=== PATIENT | male | born 1950 | race Caucasian/White ===

== ENCOUNTER → 2016-10-22 | Outpatient (CLI) | payer OTHER | LOC: FIMAGING 14:28 | PROVIDERS: ATTEND Orthopaedic Surgery | DX: Z01.818 Encounter for other preprocedural examination (principal); M16.11 Unilateral primary osteoarthritis, right hip ==

== ENCOUNTER 2016-11-15 11:11 | Inpatient (IN) | payer OTHER ==
--- NOTE | 2016-11-15 06:44 | PDIAF ---
- Diagnosis Diagnosis: right hip djd Code Status: Full Code - Medication Management Discharge Medications: Medications to Continue on Transfer Aspirin [Aspirin 81mg (*)] 81 mg PO DAILY 10/25/16 [Last Taken Unknown] Atorvastatin Calcium [Lipitor 20 mg (*)] 20 mg PO DAILY 10/25/16 [Last Taken Unknown] Herbals/Supplements -Info Only 1 ea PO DAILY 10/25/16 [Last Taken Unknown] Ibuprofen [Motrin (*)] 400 mg PO DAILY 10/25/16 [Last Taken Unknown] Multivitamins [Multivitamin (*)] 1 each PO DAILY 10/25/16 [Last Taken Unknown] Discharge Medications: Refer to the Discharge Home Medication list for PRN reason. - Orders Services needed: Physical Therapy Activity/Weight Bearing Restrictions: daily dressing changes. no soaking. may shower without bandage. wbat. anterior hip precautions. f/u at two weeks. seek attn for increasing pain, leg pain, drainage, s/s infection - Follow Up Care Current Providers and Referrals: Von North MD [Primary Care Provider] -
--- NOTE | 2016-11-15 06:44 | PDHPUP ---
History & Physical Update H&P update statement: This history and physical update is based on an assessment of the patient which was completed after admission or registration (within 24 hours), but prior to the surgery/procedure.
[~2016-11-15 11:11] MED LIST: ROPIVACAINE 0.2% 80 MG, EPINEPHrine 0.2 MG, KETOROLAC TROMETHAMINE 30 MG, morphINE 10 M... IU ONE; TRANEXAMIC ACID 1,620 MG in NS 100 ML IV ONE
[2016-11-15] MEDS ORDERED: ACETAMINOPHEN 325 MG TAB PO ONE (11:45)
[2016-11-15] MEDS ORDERED: FAMOTIDINE 20 MG TAB PO ONE (11:45)
[2016-11-15] MEDS ORDERED: ceFAZolin 2 GM/DEXTROSE 100 ML IV ONE (11:45)
[2016-11-15] MEDS ORDERED: LR 1,000 ML IV ONE (12:06)
[2016-11-15] MEDS ORDERED: THROMBIN (BOVINE) 5,000 UNIT VIAL TP ONE (12:09)
[2016-11-15] MEDS ORDERED: CALCIUM CHLORIDE 1 GM/10 ML INJ ONE (12:09)
[2016-11-15] MEDS ORDERED: ceFAZolin 1 GM/5 ML SYR ONE (12:10)
--- NOTE | 2016-11-15 13:57 | PDANEPAE ---
ANE Past Medical History - Cardiovascular History Hx Hypertension: No Hx Arrhythmias: No Hx Chest Pain: No Hx Coronary Artery / Peripheral Vascular Disease: No Hx CHF / Valvular Disease: No Hx Palpitations: No Cardiovascular History Comment: high chol - Pulmonary History Hx COPD: No Hx Asthma/Reactive Airway Disease: No Hx Recent Upper Respiratory Infection: No Hx Oxygen in Use at Home: No Hx Sleep Apnea: No Sleep Apnea Screening Result - Last Documented: Negative - Neurologic History Hx Cerebrovascular Accident: No Hx Seizures: No Hx Dementia: No - Endocrine History Hx Diabetes: No - Renal History Hx Renal Disorders: No - Liver History Hx Hepatic Disorders: No - Neurological & Psychiatric Hx Hx Neurological and Psychiatric Disorders: No - Cancer History Hx Cancer: Yes Cancer History Comment: skin ca - Congenital Disorder History Hx Congenital Disorders: No - GI History Hx Gastrointestinal Disorders: No - Other Health History Other Health History: wears contacts - Chronic Pain History Chronic Pain: Yes (right hip) - Surgical History Prior Surgeries: left eyelid surgery for cancer. oral surgery ANE Review of Systems Review of Systems: - Exercise capacity METS (RN): 4 METS ANE Patient History - Allergies Allergies/Adverse Reactions: scallops Allergy (Verified 10/27/16 11:10) - Home Medications Home Medications: Aspirin [Aspirin 81mg (*)] 81 mg PO DAILY 10/25/16 [Last Taken 1 Week Ago ~11/08] Atorvastatin Calcium [Lipitor 20 mg (*)] 20 mg PO DAILY 10/25/16 [Last Taken 09/23] Herbals/Supplements -Info Only 1 ea PO DAILY 10/25/16 [Last Taken 1 Week Ago ~] Ibuprofen [Motrin (*)] 400 mg PO DAILY 10/25/16 [Last Taken 1 Week Ago ~11/08/16 ] Multivitamins [Multivitamin (*)] 1 each PO DAILY 10/25/16 [Last Taken 1 Week Ago ~11/08/16] - NPO status NPO Since - Liquids (Date): 11/14/16 NPO Since - Liquids (Time): 20:00 NPO Since - Solids (Date): 11/14/16 NPO Since - Solids (Time): 20:00 - Smoking Hx Smoking Status: Former smoker - Family Anes Hx Family Hx Anesthesia Complications: none ANE Labs/Vital Signs - Vital Signs Blood Pressure: 153/96 Heart Rate: 54 Respiratory Rate: 18 O2 Sat (%): 95 Height: 162.56 cm Weight: 80.739 kg ANE Physical Exam - Airway Neck exam: FROM Mallampati Score: Class 2 Mouth exam: normal dental/mouth exam - Pulmonary Pulmonary: no respiratory distress - Cardiovascular Cardiovascular: regular rate and rhythym - ASA Status ASA Status: II ANE Anesthesia Plan Anesthesia Plan: spinal
[2016-11-15] MEDS ORDERED: MIDAZOLAM 2 MG/2 ML VIAL ONE (13:58)
[2016-11-15] MEDS ORDERED: fentaNYL 100 MCG/2 ML INJ ONE ×4 (13:58→17:08)
[2016-11-15] MEDS ORDERED: PROPOFOL/EMULSION 500 MG/50 ML BOTTLE IV ONE (13:58)
[2016-11-15] MEDS ORDERED: LIDOCAINE 2% 100 MG/5 ML SYR ONE (13:59)
[2016-11-15] MEDS ORDERED: DEXAMETHASONE 4 MG/ML VIAL ONE ×2 (13:59)
[2016-11-15] MEDS ORDERED: METOCLOPRAMIDE 10 MG/2 ML VIAL ONE (13:59)
[2016-11-15] MEDS ORDERED: BUPIVACAINE/DEXTROSE 7.5MG/ML 2 ML SPINAL AMP SP ONE (14:00)
[2016-11-15] MEDS ORDERED: ROCURONIUM 50 MG/5 ML VIAL ONE (14:36)
[2016-11-15] MEDS ORDERED: ONDANSETRON DISINTEGRATING 4 MG TAB PO PRN (14:37)
[2016-11-15] MEDS ORDERED: traMADol 50 MG TAB PO PRN (14:37)
[2016-11-15] MEDS ORDERED: ONDANSETRON 4 MG/2 ML VIAL IVP PRN ×2 (14:37→16:59)
[2016-11-15] MEDS ORDERED: PROMETHAZINE HCL 25 MG SUPPR PR PRN (14:37)
[2016-11-15] MEDS ORDERED: LACTULOSE 20 GM/30 ML UDCUP PO PRN (14:37)
[2016-11-15] MEDS ORDERED: BISACODYL 10 MG SUPP PR PRN (14:37)
[2016-11-15] MEDS ORDERED: DIPHENOXYLATE/ATROPINE LOMOTIL 1 TAB PO PRN (14:37)
[2016-11-15] MEDS ORDERED: MAGNESIUM HYDROXIDE 30 ML UDCUP PO PRN (14:37)
[2016-11-15] MEDS ORDERED: PROMETHAZINE HCL 25 MG/ML INJ IVP PRN (14:37)
[2016-11-15] MEDS ORDERED: TEMAZEPAM 15 MG CAP PO PRN (14:37)
[2016-11-15] MEDS ORDERED: DIAZEPAM 5 MG TAB PO PRN (14:37)
[2016-11-15] MEDS ORDERED: POLYETHYLENE GLYCOL 3350 17 GM PKT PO PRN (14:37)
[2016-11-15] MEDS ORDERED: diphenhydrAMINE 25 MG CAP PO PRN (14:37)
[2016-11-15] MEDS ORDERED: METOCLOPRAMIDE 10 MG/2 ML VIAL IVP PRN (14:37)
[2016-11-15] MEDS ORDERED: LR 1,000 ML IV SCH (15:00)
[2016-11-15] MEDS ORDERED: HYDROmorphONE/DILAUDID 1 MG/ML INJ IVP PRN (16:59)
[2016-11-15] MEDS ORDERED: MEPERIDINE 25 MG/ML SYR IVP PRN (16:59)
[2016-11-15] MEDS ORDERED: fentaNYL 100 MCG/2 ML INJ IVP PRN (16:59)
[2016-11-15] MEDS ORDERED: ALBUTEROL 3 ML DEYVIAL IH PRN (16:59)
[2016-11-15] MEDS ORDERED: NALOXONE HCL 0.4 MG/ML INJ IVP PRN (16:59)
--- NOTE | 2016-11-15 16:59 | POSTANESTH ---
Post Anesthetic Evaluation Cardiovascular Status: Similar to Pre-Op Cond Respiratory Status: Similar to Pre-op Cond. Level of Consciousness/Mental Status: Alert and Oriented Pain Control: Adequate, Prn Tx Ordered Nausea/Vomiting Control: Adequate, Prn Tx Ordered Complications Possibly Related to Anesthesia: None Noted
[2016-11-15] MEDS ORDERED: MEPERIDINE 25 MG/ML SYR ONE (17:08)
[2016-11-15] MEDS ORDERED: traMADol 50 MG TAB ONE (18:09)
[2016-11-15] MEDS ORDERED: oxyCODONE IR 5 MG TAB ONE (19:52)
[2016-11-15] MEDS: oxyCODONE IR 5 MG TAB PO PRN (19:56)
[2016-11-15] MEDS: ACETAMINOPHEN 325 MG TAB PO SCH (20:34)
[2016-11-15] MEDS: TRANEXAMIC ACID 650 MG TAB PO SCH ×2 (20:35→22:07)
[2016-11-15] MEDS: SENNOSIDES/DOCUSATE SODIUM TAB PO SCH (21:48)
[2016-11-15] MEDS: FAMOTIDINE 20 MG TAB PO SCH (21:49)
[2016-11-15] MEDS: ceFAZolin 2 GM/DEXTROSE 100 ML IV SCH (22:05)
[2016-11-15] MEDS: ASPIRIN 325 MG TAB PO SCH (22:07)
[2016-11-16] MEDS: ACETAMINOPHEN 325 MG TAB PO SCH ×3 (00:18→12:59)
[2016-11-16] MEDS: oxyCODONE IR 5 MG TAB PO PRN ×2 (02:29→12:59)
[2016-11-16 05:35] LABS: HEMATOCRIT 37.2 % (40.0-51.0); HEMOGLOBIN 13.3 g/dL (13.7-17.5)
[2016-11-16] MEDS: ceFAZolin 2 GM/DEXTROSE 100 ML IV SCH (06:07)
[2016-11-16] MEDS: TRANEXAMIC ACID 650 MG TAB PO SCH (06:07)
--- NOTE | 2016-11-16 07:33 | PDIAF ---
- Diagnosis Diagnosis: right hip djd Code Status: Full Code - Medication Management Discharge Medications: Medications to Continue on Transfer Aspirin [Aspirin 81mg (*)] 81 mg PO DAILY 10/25/16 [Last Taken 1 Week Ago ~11/08] Atorvastatin Calcium [Lipitor 20 mg (*)] 20 mg PO DAILY 10/25/16 [Last Taken 09/23] Herbals/Supplements -Info Only 1 ea PO DAILY 10/25/16 [Last Taken 1 Week Ago ~] Ibuprofen [Motrin (*)] 400 mg PO DAILY 10/25/16 [Last Taken 1 Week Ago ~11/08/16 ] Multivitamins [Multivitamin (*)] 1 each PO DAILY 10/25/16 [Last Taken 1 Week Ago ~11/08/16] Aspirin [Aspirin 325 mg (*)] 325 mg PO DAILY tab 11/16/16 [Last Taken Unknown] oxyCODONE IR [Oxycodone Ir (*)] 5 - 10 mg PO Q3HRS PRN #90 tab 11/16/16 [Last Taken Unknown] Discharge Medications: Refer to the Discharge Home Medication list for PRN reason. - Orders Services needed: Physical Therapy Diet Recommendation: no restrictions on diet Diet Texture: Regular Texture Diet Activity/Weight Bearing Restrictions: daily dressing changes. no soaking. may shower without bandage. wbat. anterior hip precautions. f/u at two weeks. seek attn for increasing pain, leg pain, drainage, s/s infection - Follow Up Care Current Providers and Referrals: Von North MD [Primary Care Provider] -
--- NOTE | 2016-11-16 08:02 | GDS ---
[f rep st] DISCHARGE SUMMARY ADMIT DIAGNOSIS: Right hip degenerative joint disease. DISCHARGE DIAGNOSIS: Right hip degenerative joint disease. PROCEDURE: Right total hip arthroplasty-MAKOplasty. HISTORY OF PRESENT ILLNESS: The patient is a 66-year-old gentleman with end-stage arthritis to his r ight hip. Clinical and radiographic features are consistent with this. He has failed all attempts a t conservative management. I have, therefore, recommended operative replacement. He understood the risks and benefits, and wished to proceed. HOSPITAL COURSE: The patient was admitted to the hospital floor after uncomplicated total hip arthro plasty. He tolerated the procedure well. Postoperatively, his course was uneventful. At the time o f discharge, he is tolerating an oral diet. His pain is well controlled on oral medicines. He is vo iding without difficulty. His dressing is clean, dry, and intact. His incision is clean, dry, and i ntact. He has negative Jitendra's bilaterally. X-rays are stable with anatomic concentric reduction. No fracture or lucency. DISCHARGE ACTIVITIES: He is weightbearing as tolerated. Anterior hip precautions. Daily dressing c hanges. No soaking or immersion. May shower without the bandage. FOLLOWUP: Follow up in the orthopedic clinic in 2 weeks. DISCHARGE MEDICATIONS: Aspirin 325 mg p.o. daily and oxycodone 5 mg 1-2 every 6 hours p.r.n. pain. /[id number]/MODL
[2016-11-16] MEDS ORDERED: ATORVASTATIN CALCIUM 20 MG TAB PO SCH (09:00)
[2016-11-16] MEDS: ASPIRIN 325 MG TAB PO SCH (09:07)
[2016-11-16] MEDS: SENNOSIDES/DOCUSATE SODIUM TAB PO SCH (09:07)
[2016-11-16] MEDS: FAMOTIDINE 20 MG TAB PO SCH (09:07)
--- NOTE | 2016-11-16 12:27 | ASMTCMCOM ---
CM Note CM Note Notes: Pt declines HHC, therapies clear pt for home. No CM d/c needs identified. Date Signed: 11/16/2016 12:27 PM Electronically Signed By:YOHANA Davis
[2016-11-16 12:51] VITALS: BP 124/82; PULSE 55; RESP 18; TEMP 98.1; O2SAT 95
--- NOTE | 2016-11-16 14:03 | ASDISCHSUM ---
Discharge Information Plan Status:Home with No Needs Medically Cleared to Leave: Discharge Date:11/16/2016 01:31 PM CM D/C Disposition:Home, Routine, Self-Care ADT D/C Disposition:Home Health Service Projected Discharge Date:11/16/2016 01:31 PM Transportation at D/C: Discharge Delay Reason: Follow-Up Date:11/16/2016 01:31 PM Discharge Slot: Final Diagnosis: Placement Information Patient Contact Information Contact Name:MARIS Relationship: Address:[address] City:[place] Alternate Phone: [facility]/Zip Code:[place] [address] Email: Financial Information Financial Class:HMO and PPO Plans Primary Plan Desc:[employer] Primary Plan Number:[id number] Secondary Plan Desc:MEDICARE INPATIENT Secondary Plan Number:[id number] Assessment Information [facility] CM Progress Note CM Note CM Note Notes: Pt declines HHC, therapies clear pt for home. No CM d/c needs identified. Date Signed: 11/16/2016 12:27 PM Electronically Signed By:YOHANA Davis Intervention Information
== END 2016-11-16 13:31 | disposition home or self-care (01) | DRG 470 ==
LOC: F3N 11:11
PROVIDERS: ADMIT Orthopaedic Surgery; ATTEND Orthopaedic Surgery
PROC: 0SR904Z Replacement of Right Hip Joint with Ceramic on Polyethylene Synthetic Substitute, Open Approach (ICD-10-PCS; principal; 2016-11-15 12:45)
DX: M16.11 Unilateral primary osteoarthritis, right hip (principal); E78.5 Hyperlipidemia, unspecified; G89.29 Other chronic pain; Z85.820 Personal history of malignant melanoma of skin; Z87.891 Personal history of nicotine dependence
CPT/HCPCS: 97161-GP; 97165-GO; G8978-GP-CI; G8979-GP-CH; G8980-GP-CI; G8987-GO-CI; G8988-GO-CI; G8989-GO-CI; J0171; J0690; J1100; J1885; J2001; J2250; J2704; J2765; J2795; J3010

== ENCOUNTER → 2017-01-03 | Outpatient (CLI) | payer OTHER | LOC: BMCIMAGING 09:54 | PROVIDERS: ATTEND Orthopaedic Surgery | DX: Z09 Encounter for follow-up examination after completed treatment for conditions other than malignant neoplasm (principal); Z96.641 Presence of right artificial hip joint ==

== ENCOUNTER → 2017-02-14 | Outpatient (CLI) | payer OTHER | LOC: BMCIMAGING 09:25 | PROVIDERS: ATTEND Orthopaedic Surgery | DX: Z47.1 Aftercare following joint replacement surgery (principal); Z96.641 Presence of right artificial hip joint ==